=== PATIENT | male | born 1955 | race Caucasian/White ===

== ENCOUNTER → 2016-09-26 | Outpatient (REF) | payer BC, MEDICARE ==
[~2016-09-26] MED LIST: ASPI1TAB PO; ATOR40TA PO; AZAT5TAB PO; CIPR500T89 PO; FLAG500T PO; K-TA10TA2 PO; METO-209 PO; NITR4TASL SL; OMEP20CA3 PO; VIAG100T PO
[2016-09-26 11:16] LABS: BASO # 0.1 K/mm3 (0.0-0.2); BASO % 0.6 % (0.0-1.0); EOS # 0.6 K/mm3 (0.0-0.50); EOS % 5.2 % (0.0-3.0); LARGE UNSTAINED CELL # 0.2 K/mm3 (0.0-0.4); LARGE UNSTAINED CELL % 1.6 % (0.0-4.0); LYMPH # 1.5 K/mm3 (1.5-4.5); LYMPH % 12.3 % (24.0-44.0); MEAN CORPUSCULAR HEMOGLOBIN 31.3 pg (27.0-33.0); MEAN CORPUSCULAR HGB CONC 33.6 g/dl (32.0-36.5); MONO # 0.6 K/mm3 (0.0-0.8); MONO % 5.9 % (0.0-5.0); NEUTROPHILS # 8.1 K/mm3 (1.8-7.7); NEUTROPHILS % 74.5 % (36.0-66.0); PLATELET COUNT, AUTOMATED 349 k/mm3 (150-450); RED CELL DISTRIBUTION WIDTH 13.6 % (11.5-14.5); WHITE BLOOD COUNT 10.9 K/mm3 (4.0-10.0)
[2016-09-26 12:05] LABS: ALBUMIN 3.8 GM/DL (3.2-5.2); ALBUMIN/GLOBULIN RATIO 1.19 (1.00-1.93); ALKALINE PHOSPHATASE 110 U/L (45-117); ALT/SGPT 15 U/L (12-78); ANION GAP 11 MEQ/L (8-16); AST/SGOT 17 U/L (15-37); BILIRUBIN,TOTAL 0.4 MG/DL (0.2-1.0); BLOOD UREA NITROGEN 20 MG/DL (7-18); CALCIUM LEVEL 8.9 MG/DL (8.8-10.2); CARBON DIOXIDE LEVEL 25 MEQ/L (21-32); CHLORIDE LEVEL 107 MEQ/L (98-107); CHOLESTEROL LEVEL 182 MG/DL (<200); CREATININE FOR GFR 0.82 MG/DL (0.70-1.30); GLOMERULAR FILTRATION RATE > 60.0 (>49); GLUCOSE, FASTING 92 MG/DL (80-110); POTASSIUM SERUM 4.2 MEQ/L (3.5-5.1); SODIUM LEVEL 143 MEQ/L (136-145); TRIGLYCERIDES LEVEL 250 MG/DL (<150)
== END ==
LOC: M SFHCCLAY 08:46
PROVIDERS: ATTEND Family Medicine
DX: M35.1 Other overlap syndromes (principal); E78.00 Pure hypercholesterolemia, unspecified; I25.10 Atherosclerotic heart disease of native coronary artery without angina pectoris

== ENCOUNTER 2016-10-08 11:59 | Emergency (ER) | payer BC, MEDICARE ==
[~2016-10-08] VITALS: Ht 177.8 cm; Wt 90.7 kg
[2016-10-08] MEDS ORDERED: HYDR-733 PO (12:08)
[2016-10-08] MEDS ORDERED: LEFL1TAB4 PO (12:08)
[2016-10-08] MEDS ORDERED: FLOM5CAP PO (12:08)
[2016-10-08] MEDS ORDERED: MORPHINE 2 MG/ML 1ML SYRINGE IV ONE (12:45)
[2016-10-08] MEDS ORDERED: ONDANSETRON 4MG/2ML VIAL (J2405) IV ONE (12:45)
[2016-10-08] MEDS ORDERED: DICYCLOMINE INJ 20MG/2ML (J0500) IM ONE (12:45)
[2016-10-08] MEDS ORDERED: GASTROGRAFIN SOLUTION 30ML (Q9963) PO ONE ×2 (13:00)
[2016-10-08 13:03] LABS: BASO # 0.1 K/mm3 (0.0-0.2); BASO % 0.7 % (0.0-1.0); EOS # 0.5 K/mm3 (0.0-0.50); EOS % 6.1 % (0.0-3.0); LARGE UNSTAINED CELL # 0.3 K/mm3 (0.0-0.4); LARGE UNSTAINED CELL % 3.5 % (0.0-4.0); LYMPH # 1.8 K/mm3 (1.5-4.5); LYMPH % 17.2 % (24.0-44.0); MEAN CORPUSCULAR HEMOGLOBIN 30.5 pg (27.0-33.0); MEAN CORPUSCULAR HGB CONC 32.9 g/dl (32.0-36.5); MEAN CORPUSCULAR VOLUME 92.6 fl (80.0-96.0); MONO # 0.9 K/mm3 (0.0-0.8); MONO % 9.8 % (0.0-5.0); NEUTROPHILS # 5.5 K/mm3 (1.8-7.7); NEUTROPHILS % 62.8 % (36.0-66.0); PLATELET COUNT, AUTOMATED 384 k/mm3 (150-450); RED CELL DISTRIBUTION WIDTH 13.4 % (11.5-14.5); WHITE BLOOD COUNT 8.7 K/mm3 (4.0-10.0)
[2016-10-08 13:21] LABS: ALBUMIN 3.9 GM/DL (3.2-5.2); ALBUMIN/GLOBULIN RATIO 0.95 (1.00-1.93); ALKALINE PHOSPHATASE 117 U/L (45-117); ALT/SGPT 44 U/L (12-78); AMYLASE 27 U/L (25-115); ANION GAP 12 MEQ/L (8-16); AST/SGOT 57 U/L (15-37); BILIRUBIN,DIRECT 0.1 MG/DL (0.0-0.2); BILIRUBIN,TOTAL 0.5 MG/DL (0.2-1.0); BLOOD UREA NITROGEN 25 MG/DL (7-18); CALCIUM LEVEL 8.8 MG/DL (8.8-10.2); CARBON DIOXIDE LEVEL 20 MEQ/L (21-32); CHLORIDE LEVEL 107 MEQ/L (98-107); CREATININE FOR GFR 1.07 MG/DL (0.70-1.30); GLOMERULAR FILTRATION RATE > 60.0 (>49); GLUCOSE, FASTING 99 MG/DL (80-110); POTASSIUM SERUM 3.8 MEQ/L (3.5-5.1); SODIUM LEVEL 139 MEQ/L (136-145)
[2016-10-08] MEDS ORDERED: ISOVUE-370 76% 100ML VIAL (Q9967) As Ordered ONE (14:33)
[2016-10-08 15:20] VITALS: BP 110/59
[2016-10-08] MEDS ORDERED: ZOFR4TAB3 PO (15:22)
[2016-10-08] MEDS ORDERED: CIPR500T89 PO (15:22)
[2016-10-08] MEDS ORDERED: BENT20TA PO (15:22)
[2016-10-08] MEDS ORDERED: FLAG500T PO (15:22)
--- NOTE | 2016-10-09 07:20 | REP ---
CT study of the abdomen and pelvis with IV and oral contrast: History: Lower abdominal pain, nausea, vomiting and diarrhea for [address] study is from June 15, 2016. CT contrast dose: 100 mL of Isovue [address] findings: The patient is status post posterior element fusion at the L4-5 level in the lumbar spine via left-sided transpedicular screw and interconnecting rods placement. The bowel gas pattern is unremarkable. The lung bases show a 4 mm noncalcified nodule in the right middle lobe unchanged from the study done 4 months ago. There is no other significant pulmonary parenchymal finding. There is mild diffuse fatty infiltration of the liver. No focal liver lesion is seen. The spleen is unremarkable. No adrenal lesion is observed. No pancreatic abnormality is seen. The gallbladder is unremarkable. The kidneys enhance symmetrically are morphologically intact. A normal appendix is seen retrocecal in position. Small and large intestinal bowel loops show ingested barium and air with air fluid levels. The pattern of liquid content in the colon is seen with air fluid levels. This may reflect enteritis. No small or large bowel dilation is seen. No obstructive lesion is observed. Prostate, seminal vesicles and urinary bladder are unremarkable. No abdominal wall defect is seen. There is some post operative irregularity iliac crest posteriorly on the left consistent with a donor site for posterior element fusion. A laminectomy has been performed at L5. No bony destructive lesion is seen. Impression: 1. Fatty infiltration of the liver. 2. Question enteritis pattern in the bowel gas. No obstructive lesion seen. Normal appendix. 3. 4 mm noncalcified right middle lobe pulmonary nodule. Stable for the last 4 months. By Fleischner Society criteria this can be followed in 1 year if the patient is considered at high risk for pulmonary malignancy. Signed by Ollie Ng MD 10/09/2016 08:42 A
--- NOTE | 2016-10-10 21:35 | ED PDOC ---
Post-Departure Follow-Up dr logan faxed formal report of ct abd/p for fu Colby Up MD Oct 10, 2016 21:35
== END 2016-10-08 15:28 | disposition home or self-care (01) ==
LOC: M ED 13:37
DX: K52.9 Noninfective gastroenteritis and colitis, unspecified (principal)
CPT/HCPCS: 36415; 74177; 80048; 80076; 81001; 82150; 83605; 83690; 85025; 86140; 87086; 87507; 96372; 96374; 96375; 99283; J0500; J2405; Q9963; Q9967

== ENCOUNTER → 2016-10-24 | Outpatient (REF) | payer BC, MEDICARE ==
[~2016-10-24] MED LIST changes: +BENT20TA PO; +FLOM5CAP PO; +HYDR-733 PO; +LEFL1TAB4 PO; +ZOFR4TAB3 PO
[2016-10-24 17:36] LABS: ALBUMIN 3.8 GM/DL (3.2-5.2); ALBUMIN/GLOBULIN RATIO 1.27 (1.00-1.93); ALKALINE PHOSPHATASE 91 U/L (45-117); ALT/SGPT 21 U/L (12-78); ANION GAP 7 MEQ/L (8-16); AST/SGOT 21 U/L (15-37); BILIRUBIN,TOTAL 0.4 MG/DL (0.2-1.0); BLOOD UREA NITROGEN 17 MG/DL (7-18); CALCIUM LEVEL 8.5 MG/DL (8.8-10.2); CARBON DIOXIDE LEVEL 24 MEQ/L (21-32); CHLORIDE LEVEL 109 MEQ/L (98-107); CREATININE FOR GFR 0.76 MG/DL (0.70-1.30); GLOMERULAR FILTRATION RATE > 60.0 (>49); GLUCOSE, FASTING 87 MG/DL (80-110); POTASSIUM SERUM 4.2 MEQ/L (3.5-5.1); SODIUM LEVEL 140 MEQ/L (136-145); TOTAL PROTEIN 6.8 GM/DL (6.4-8.2)
[2016-10-24 18:26] LABS: BASO % 0.8 % (0.0-1.0); EOS # 0.3 K/mm3 (0.0-0.50); EOS % 4.5 % (0.0-3.0); LARGE UNSTAINED CELL # 0.1 K/mm3 (0.0-0.4); LARGE UNSTAINED CELL % 1.8 % (0.0-4.0); LYMPH # 1.5 K/mm3 (1.5-4.5); LYMPH % 20.2 % (24.0-44.0); MEAN CORPUSCULAR HEMOGLOBIN 30.7 pg (27.0-33.0); MEAN CORPUSCULAR HGB CONC 33.2 g/dl (32.0-36.5); MEAN CORPUSCULAR VOLUME 92.7 fl (80.0-96.0); MONO # 0.6 K/mm3 (0.0-0.8); MONO % 8.9 % (0.0-5.0); NEUTROPHILS # 4.5 K/mm3 (1.8-7.7); NEUTROPHILS % 63.9 % (36.0-66.0); PLATELET COUNT, AUTOMATED 317 k/mm3 (150-450); RED CELL DISTRIBUTION WIDTH 13.5 % (11.5-14.5)
== END ==
LOC: M SFHCCLAY 12:24
PROVIDERS: ATTEND Family Medicine
DX: R19.7 Diarrhea, unspecified (principal)

== ENCOUNTER → 2017-06-02 | Outpatient (CLI) | payer BC, MEDICARE ==
[~2017-06-02] MED LIST changes: -ATOR40TA PO; +ATOR40TA75 PO; +AZAT50TA2 PO; -AZAT5TAB PO; +CIPR-249 PO; -CIPR500T89 PO; -METO-209 PO; +METO1TAB33 PO; +PROHANCE 279.3MG/ML 15ML VIAL (A9576) As Ordered ONE; +PROHANCE 279.3MG/ML 5ML VIAL (A9576) As Ordered ONE
--- NOTE | 2017-06-02 12:05 | REP ---
MRI LUMBAR SPINE WITHOUT AND WITH CONTRAST: HISTORY: Post laminectomy syndrome. CONTRAST: ProHance 18 mL COMPARISON: 01/09/2015 Decreased signal intensity on T2-weighted images is present in the L2-3 through L5-S1 intervertebral discs. The discs are decreased in height. These findings are consistent with disc degeneration. There is no disc bulge or herniation at the L1-2 level. The L1 nerves exit the neural foramina without compression. A diffuse disc bulge is present at the L2-3 level. There is minimal compression of the thecal sac. The L2 nerves exit the neural foramina without compression. A diffuse disc bulge and small central disc extrusion are present at the L3-4 level. The disc extrusion is increased in size. There is inferior migration of disc material. There is hypertrophy of the ligamenta flava and posterior articulating facets. These findings produce mild central canal stenosis. The L3 nerves exit the neural foramina without compression. The patient is status post L4-5 posterior spinal fusion and laminectomy. Metal rods and pedicle screws are present. A diffuse disc bulge is present at the L4-5 level. This abuts the thecal sac. There is hypertrophy of the posterior articulating facets. The L4 nerves exit the neural foramina without compression. Enhancing scar tissue is present at the laminectomy site and in the lateral aspects of the spinal canal. The scar tissue involves the L5 nerves. A diffuse disc bulge is present at the L5-S1 level. This abuts the thecal sac. There is hypertrophy of the posterior articulating facets. The L5 nerves exit the neural foramina without compression. The conus medullaris is normal in appearance terminating at the level of the L2 vertebral body. Increased signal intensity on T2-weighted images is present in the inferior endplate of the L5 vertebral body. This represents degenerative change. There is no subluxation. IMPRESSION: 1. Diffuse disc bulge at the L2-3 level with minimal thecal sac compression. 2. Mild central canal stenosis at the L2-3 level secondary to disc bulge, disc extrusion, ligamentous and facet hypertrophy. The disc extrusion is increased in size. There has been progression of the canal stenosis. 3. The patient is status post L4-5 posterior spinal fusion and laminectomy. Scar tissues involves the L5 nerves. There is anatomic alignment of the lumbar spine. 4. Diffuse disc bulge at the L5-S1 level. This abuts the thecal sac. There is no other significant change. Signed by Juan Moser MD 06/02/2017 12:07 P
== END ==
LOC: M RAD 09:10
PROVIDERS: ATTEND Nurse Practitioner Family
DX: M46.1 Sacroiliitis, not elsewhere classified (principal); M96.1 Postlaminectomy syndrome, not elsewhere classified; M47.816 Spondylosis without myelopathy or radiculopathy, lumbar region; M51.27 Other intervertebral disc displacement, lumbosacral region; M79.1 Myalgia; M48.061 Spinal stenosis, lumbar region without neurogenic claudication; M50.11 Cervical disc disorder with radiculopathy, high cervical region; M51.26 Other intervertebral disc displacement, lumbar region
CPT/HCPCS: 72158; A9576

== ENCOUNTER → 2017-08-10 | Outpatient (REF) | payer BC, MEDICARE ==
[2017-08-10 12:21] LABS: BASO # 0.1 10^3/uL (0.0-0.2); BASO % 0.8 % (0.0-1.0); EOS # 0.2 10^3/uL (0.0-0.50); EOS % 2.6 % (0.0-3.0); HEMATOCRIT 46.8 % (42.0-52.0); HEMOGLOBIN 15.6 g/dl (14.0-18.0); IMMATURE GRANULOCYTE # 0.1 10^3/uL (0-0); IMMATURE GRANULOCYTE % 0.9 % (0-0); LYMPH # 1.8 10^3/uL (1.5-4.5); LYMPH % 20.8 % (24.0-44.0); MEAN CORPUSCULAR HEMOGLOBIN 31.7 pg (27.0-33.0); MEAN CORPUSCULAR HGB CONC 33.3 g/dl (32.0-36.5); MEAN CORPUSCULAR VOLUME 95.1 fl (80.0-96.0); MONO % 11.1 % (0.0-5.0); NEUTROPHILS # 5.5 10^3/uL (1.8-7.7); NEUTROPHILS % 63.8 % (36.0-66.0); PLATELET COUNT, AUTOMATED 253 10^3/uL (150-450); RED BLOOD COUNT 4.92 10^6/uL (4.30-6.10); RED CELL DISTRIBUTION WIDTH 13.6 % (11.5-14.5); WHITE BLOOD COUNT 8.6 10^3/uL (4.0-10.0)
[2017-08-10 12:47] LABS: ALBUMIN 3.6 GM/DL (3.2-5.2); ALBUMIN/GLOBULIN RATIO 1.16 (1.00-1.93); ALKALINE PHOSPHATASE 79 U/L (45-117); ALT/SGPT 14 U/L (12-78); ANION GAP 9 MEQ/L (8-16); AST/SGOT 16 U/L (7-37); BILIRUBIN,DIRECT < 0.1 MG/DL (0.0-0.2); BILIRUBIN,TOTAL 0.4 MG/DL (0.2-1.0); BLOOD UREA NITROGEN 21 MG/DL (7-18); CALCIUM LEVEL 8.6 MG/DL (8.8-10.2); CARBON DIOXIDE LEVEL 26 MEQ/L (21-32); CHLORIDE LEVEL 107 MEQ/L (98-107); CHOLESTEROL LEVEL 211 MG/DL (<200); CHOLESTEROL RISK RATIO 4.906 (<5); GLOMERULAR FILTRATION RATE > 60.0 (>49); GLUCOSE, FASTING 88 MG/DL (80-110); HDL CHOLESTEROL 43 MG/DL (>40); NON-HDL-C 168 MG/DL; POTASSIUM SERUM 4.2 MEQ/L (3.5-5.1); SODIUM LEVEL 142 MEQ/L (136-145); TOTAL PROTEIN 6.7 GM/DL (6.4-8.2); TRIGLYCERIDES LEVEL 180 MG/DL (<150)
== END ==
LOC: M LABDRAWC 11:51
DX: L40.0 Psoriasis vulgaris (principal); Z51.81 Encounter for therapeutic drug level monitoring; Z79.899 Other long term (current) drug therapy
CPT/HCPCS: 80076

== ENCOUNTER → 2017-09-05 | Outpatient (REF) | payer BC, MEDICARE ==
[2017-09-05 12:04] LABS: ALBUMIN 3.8 GM/DL (3.2-5.2); ALBUMIN/GLOBULIN RATIO 1.31 (1.00-1.93); ALKALINE PHOSPHATASE 84 U/L (45-117); ALT/SGPT 12 U/L (12-78); AST/SGOT 16 U/L (7-37); BILIRUBIN,DIRECT < 0.1 MG/DL (0.0-0.2); BILIRUBIN,TOTAL 0.4 MG/DL (0.2-1.0); CHOLESTEROL LEVEL 197 MG/DL (<200); CHOLESTEROL RISK RATIO 5.324 (<5); HDL CHOLESTEROL 37 MG/DL (>40); LDL CHOLESTEROL 103.8 MG/DL (<100); NON-HDL-C 160 MG/DL; TOTAL PROTEIN 6.7 GM/DL (6.4-8.2); TRIGLYCERIDES LEVEL 281 MG/DL (<150)
== END ==
LOC: M LABDRAWC 11:21
DX: L40.8 Other psoriasis (principal); Z51.81 Encounter for therapeutic drug level monitoring; Z79.899 Other long term (current) drug therapy
CPT/HCPCS: 80076

== ENCOUNTER → 2017-09-19 | Outpatient (REF) | payer BC, MEDICARE ==
[2017-09-19 11:35] LABS: BASO # 0.1 10^3/uL (0.0-0.2); EOS # 0.2 10^3/uL (0.0-0.50); EOS % 2.3 % (0.0-3.0); HEMATOCRIT 46.7 % (42.0-52.0); HEMOGLOBIN 15.5 g/dl (14.0-18.0); IMMATURE GRANULOCYTE # 0.1 10^3/uL (0-0); LYMPH # 1.7 10^3/uL (1.5-4.5); LYMPH % 24.3 % (24.0-44.0); MEAN CORPUSCULAR HEMOGLOBIN 31.3 pg (27.0-33.0); MEAN CORPUSCULAR HGB CONC 33.2 g/dl (32.0-36.5); MEAN CORPUSCULAR VOLUME 94.3 fl (80.0-96.0); MONO # 1.1 10^3/uL (0.0-0.8); MONO % 15.8 % (0.0-5.0); NEUTROPHILS # 3.9 10^3/uL (1.8-7.7); NEUTROPHILS % 55.6 % (36.0-66.0); PLATELET COUNT, AUTOMATED 326 10^3/uL (150-450); RED BLOOD COUNT 4.95 10^6/uL (4.30-6.10); RED CELL DISTRIBUTION WIDTH 13.7 % (11.5-14.5); WHITE BLOOD COUNT 7.1 10^3/uL (4.0-10.0)
[2017-09-19 11:58] LABS: ALBUMIN 3.7 GM/DL (3.2-5.2); ALT/SGPT 21 U/L (12-78); AST/SGOT 27 U/L (7-37); C REACTIVE PROTEIN QUANTITATIV 0.99 MG/DL (0.00-0.30); GLOMERULAR FILTRATION RATE > 60.0 (>49)
[2017-09-19 12:00] LABS: ERYTHROCYTE SEDIMENTATION RATE 23 mm/hr (0-20)
[2017-09-20 14:13] LABS: SMITHS ANTIBODY < 0.2 AI (0.0-0.9)
== END ==
LOC: M LABDRAWC 11:17
DX: Z79.899 Other long term (current) drug therapy (principal); M35.1 Other overlap syndromes; M36.8 Systemic disorders of connective tissue in other diseases classified elsewhere
CPT/HCPCS: 82565

== ENCOUNTER → 2017-09-19 | Outpatient (REF) | payer BC, MEDICARE ==
[2017-09-19 12:08] LABS: ALBUMIN 3.8 GM/DL (3.2-5.2); ALBUMIN/GLOBULIN RATIO 1.31 (1.00-1.93); ALKALINE PHOSPHATASE 101 U/L (45-117); ALT/SGPT 19 U/L (12-78); AST/SGOT 25 U/L (7-37); BILIRUBIN,DIRECT < 0.1 MG/DL (0.0-0.2); BILIRUBIN,TOTAL 0.2 MG/DL (0.2-1.0); CHOLESTEROL LEVEL 202 MG/DL (<200); CHOLESTEROL RISK RATIO 6.516 (<5); HDL CHOLESTEROL 31 MG/DL (>40); NON-HDL-C 171 MG/DL; TOTAL PROTEIN 6.7 GM/DL (6.4-8.2); TRIGLYCERIDES LEVEL 421 MG/DL (<150)
== END ==
LOC: M LABDRAWC 11:20
DX: L40.8 Other psoriasis (principal); Z51.81 Encounter for therapeutic drug level monitoring; Z79.899 Other long term (current) drug therapy
CPT/HCPCS: 80076

== ENCOUNTER → 2017-09-22 | Outpatient (CLI) | payer BC, MEDICARE | LOC: M RAD 07:04 | DX: M46.1 Sacroiliitis, not elsewhere classified (principal); M96.1 Postlaminectomy syndrome, not elsewhere classified; M47.816 Spondylosis without myelopathy or radiculopathy, lumbar region; M51.27 Other intervertebral disc displacement, lumbosacral region; M79.1 Myalgia; M48.061 Spinal stenosis, lumbar region without neurogenic claudication; M51.26 Other intervertebral disc displacement, lumbar region; M35.1 Other overlap syndromes; M47.812 Spondylosis without myelopathy or radiculopathy, cervical region; M54.16 Radiculopathy, lumbar region; M47.817 Spondylosis without myelopathy or radiculopathy, lumbosacral region | CPT/HCPCS: 72146 ==

== ENCOUNTER → 2017-09-29 | Outpatient (REF) | payer BC, MEDICARE ==
[2017-09-29 11:33] LABS: ALBUMIN 3.9 GM/DL (3.2-5.2); ALKALINE PHOSPHATASE 88 U/L (45-117); ALT/SGPT 20 U/L (12-78); AST/SGOT 24 U/L (7-37); BILIRUBIN,DIRECT 0.1 MG/DL (0.0-0.2); BILIRUBIN,TOTAL 0.4 MG/DL (0.2-1.0); CHOLESTEROL LEVEL 210 MG/DL (<200); HDL CHOLESTEROL 35 MG/DL (>40); LDL CHOLESTEROL 97.8 MG/DL (<100); NON-HDL-C 175 MG/DL; TOTAL PROTEIN 6.9 GM/DL (6.4-8.2); TRIGLYCERIDES LEVEL 386 MG/DL (<150)
== END ==
LOC: M LABDRAWC 11:01
DX: L40.8 Other psoriasis (principal); Z51.81 Encounter for therapeutic drug level monitoring; Z79.899 Other long term (current) drug therapy
CPT/HCPCS: 80076

== ENCOUNTER → 2017-10-13 | Outpatient (REF) | payer BC, MEDICARE ==
[2017-10-13 12:09] LABS: ALBUMIN 3.8 GM/DL (3.2-5.2); ALBUMIN/GLOBULIN RATIO 1.41 (1.00-1.93); ALKALINE PHOSPHATASE 64 U/L (45-117); ALT/SGPT 12 U/L (12-78); AST/SGOT 18 U/L (7-37); BILIRUBIN,DIRECT 0.1 MG/DL (0.0-0.2); BILIRUBIN,TOTAL 0.4 MG/DL (0.2-1.0); CHOLESTEROL LEVEL 175 MG/DL (<200); CHOLESTEROL RISK RATIO 5.645 (<5); HDL CHOLESTEROL 31 MG/DL (>40); NON-HDL-C 144 MG/DL; TOTAL PROTEIN 6.5 GM/DL (6.4-8.2); TRIGLYCERIDES LEVEL 250 MG/DL (<150)
== END ==
LOC: M LABDRAWC 11:33
DX: L40.8 Other psoriasis (principal); Z51.81 Encounter for therapeutic drug level monitoring; Z79.899 Other long term (current) drug therapy
CPT/HCPCS: 80076

== ENCOUNTER → 2017-11-20 | Outpatient (REF) | payer BC, MEDICARE ==
[2017-11-20 12:36] LABS: ALT/SGPT 19 U/L (12-78); CHOLESTEROL LEVEL 219 MG/DL (< 200); TRIGLYCERIDES LEVEL 253 MG/DL (<150)
[2017-11-20 12:36] LABS: AST/SGOT 29 U/L (7-37)
== END ==
LOC: M LABDRAWC 11:41
DX: L40.1 Generalized pustular psoriasis (principal); Z79.899 Other long term (current) drug therapy; Z51.81 Encounter for therapeutic drug level monitoring
CPT/HCPCS: 84460

== ENCOUNTER → 2017-12-05 | Outpatient (REF) | payer BC, MEDICARE ==
[2017-12-05 11:29] LABS: ALBUMIN 3.8 GM/DL (3.2-5.2); ALBUMIN/GLOBULIN RATIO 1.23 (1.00-1.93); ALKALINE PHOSPHATASE 69 U/L (45-117); ALT/SGPT 21 U/L (12-78); AST/SGOT 30 U/L (7-37); BILIRUBIN,DIRECT < 0.1 MG/DL (0.0-0.2); BILIRUBIN,TOTAL 0.3 MG/DL (0.2-1.0); CHOLESTEROL LEVEL 205 MG/DL (<200); CHOLESTEROL RISK RATIO 7.068 (<5); HDL CHOLESTEROL 29 MG/DL (>40); LDL CHOLESTEROL 107.2 MG/DL (<100); NON-HDL-C 176 MG/DL; TOTAL PROTEIN 6.9 GM/DL (6.4-8.2); TRIGLYCERIDES LEVEL 344 MG/DL (<150)
== END ==
LOC: M LABDRAWC 11:01
DX: L40.8 Other psoriasis (principal); Z51.81 Encounter for therapeutic drug level monitoring; Z79.899 Other long term (current) drug therapy
CPT/HCPCS: 80076

== ENCOUNTER → 2018-02-20 | Outpatient (REF) | payer BC, MEDICARE ==
[2018-02-20 11:53] LABS: ALBUMIN 3.6 GM/DL (3.2-5.2); ALBUMIN/GLOBULIN RATIO 1.16 (1.00-1.93); ALKALINE PHOSPHATASE 62 U/L (45-117); ALT/SGPT 24 U/L (12-78); AST/SGOT 35 U/L (7-37); BILIRUBIN,DIRECT < 0.1 MG/DL (0.0-0.2); BILIRUBIN,TOTAL 0.3 MG/DL (0.2-1.0); CHOLESTEROL LEVEL 225 MG/DL (<200); CHOLESTEROL RISK RATIO 4.787 (<5); HDL CHOLESTEROL 47 MG/DL (>40); NON-HDL-C 178 MG/DL; TOTAL PROTEIN 6.7 GM/DL (6.4-8.2); TRIGLYCERIDES LEVEL 240 MG/DL (<150)
== END ==
LOC: M LABDRAWC 11:16
DX: L40.8 Other psoriasis (principal); Z51.81 Encounter for therapeutic drug level monitoring; Z79.899 Other long term (current) drug therapy
CPT/HCPCS: 80076

== ENCOUNTER → 2018-04-25 | Outpatient (CLI) | payer BC, MEDICARE ==
[2018-04-25 14:08] LABS: BASO # 0.1 10^3/uL (0.0-0.2); BASO % 0.5 % (0.0-1.0); EOS # 0.2 10^3/uL (0.0-0.50); EOS % 1.7 % (0.0-3.0); HEMATOCRIT 43.3 % (42.0-52.0); HEMOGLOBIN 14.1 g/dl (13.5-17.5); IMMATURE GRANULOCYTE % 0.9 % (0-3.0); LYMPH % 17.6 % (24.0-44.0); MEAN CORPUSCULAR HEMOGLOBIN 31.3 pg (27.0-33.0); MEAN CORPUSCULAR HGB CONC 32.6 g/dl (32.0-36.5); MONO # 1.7 10^3/uL (0.0-0.8); MONO % 14.4 % (0.0-5.0); NEUTROPHILS # 7.4 10^3/uL (1.8-7.7); NEUTROPHILS % 64.9 % (36.0-66.0); PLATELET COUNT, AUTOMATED 290 10^3/uL (150-450); RED BLOOD COUNT 4.51 10^6/uL (4.30-6.10); RED CELL DISTRIBUTION WIDTH 13.7 % (11.5-14.5); WHITE BLOOD COUNT 11.5 10^3/uL (4.0-10.0)
[2018-04-25 14:45] LABS: ALBUMIN 3.2 GM/DL (3.2-5.2); ALBUMIN/GLOBULIN RATIO 1.03 (1.00-1.93); ALKALINE PHOSPHATASE 75 U/L (45-117); ALT/SGPT 11 U/L (12-78); ANION GAP 8 MEQ/L (8-16); AST/SGOT 22 U/L (7-37); BILIRUBIN,DIRECT 0.1 MG/DL (0.0-0.2); BILIRUBIN,TOTAL 0.5 MG/DL (0.2-1.0); BLOOD UREA NITROGEN 17 MG/DL (7-18); CALCIUM LEVEL 8.1 MG/DL (8.8-10.2); CARBON DIOXIDE LEVEL 29 MEQ/L (21-32); CHLORIDE LEVEL 102 MEQ/L (98-107); CREATININE FOR GFR 0.84 MG/DL (0.70-1.30); GLOMERULAR FILTRATION RATE > 60.0 (>49); GLUCOSE, FASTING 62 MG/DL (70-100); PHOSPHORUS LEVEL 2.9 MG/DL (2.5-4.9); POTASSIUM SERUM 4.5 MEQ/L (3.5-5.1); SODIUM LEVEL 139 MEQ/L (136-145); TOTAL PROTEIN 6.3 GM/DL (6.4-8.2)
[2018-04-25 14:48] LABS: HEPATITIS B SURFACE ANTIBODY NEGATIVE (POSITIVE)
[2018-04-25 14:59] LABS: HEPATITIS B SURFACE ANTIGEN NEGATIVE (NEGATIVE)
[2018-04-25 15:28] LABS: HEPATITIS C VIRUS ABY INDEX 0.1 INDEX (<0.8)
[2018-05-02 00:07] LABS: QUANTIFERON GOLD TB Negative (Negative); TB Test (QFT) Antigen 0.11 IU/mL (.); TB Test (QFT) Antigen Minus Ni 0.06 IU/mL (.); TB Test (QFT) Mitogen >10.00 IU/mL (.); TB Test (QFT) Nil 0.05 IU/mL (.)
== END ==
LOC: M WUC 09:39
DX: Z51.81 Encounter for therapeutic drug level monitoring (principal); Z79.899 Other long term (current) drug therapy; L40.0 Psoriasis vulgaris
CPT/HCPCS: 80076

== ENCOUNTER → 2019-05-09 | Outpatient (CLI) | payer BC, MEDICARE ==
[~2019-05-09] MED LIST changes: -ASPI1TAB PO; +ASPI81TA26 PO; +FLOM0.4C39 PO; -FLOM5CAP PO; -OMEP20CA3 PO; +OMEP20CA4 PO; -PROHANCE 279.3MG/ML 15ML VIAL (A9576) As Ordered ONE; -PROHANCE 279.3MG/ML 5ML VIAL (A9576) As Ordered ONE; +ZOFR4TAB14 PO; -ZOFR4TAB3 PO
--- NOTE | 2019-05-09 10:23 | REP ---
Two-view chest: 05/09/2019. Indication: New psoriasis and medication monitoring. Comparison: 04/25/2018. Findings: Elevation of the right hemidiaphragm is redemonstrated. Plate-like atelectasis of the left lower lobe persists. Spinal stimulator is unchanged in position. No new pulmonary infiltrates are present. There is no pneumothorax. Cardiac silhouette is unremarkable. Impression: No acute cardiopulmonary process. Stable exam compared to last year. Electronically Signed by Jonn Ahmadi DO 05/09/2019 10:14 A
== END ==
LOC: M LAB 07:15
PROVIDERS: ATTEND Nurse Practitioner Family
DX: Z51.81 Encounter for therapeutic drug level monitoring (principal); L40.0 Psoriasis vulgaris; Z79.899 Other long term (current) drug therapy

== ENCOUNTER → 2019-05-16 | Outpatient (REF) | payer BC, MEDICARE ==
[2019-05-16 12:02] LABS: CHOLESTEROL RISK RATIO 4.942 (<5)
== END ==
LOC: M SFHCRHEU 07:19
PROVIDERS: ATTEND Family Medicine
DX: E78.00 Pure hypercholesterolemia, unspecified (principal)

== ENCOUNTER → 2019-07-10 | Outpatient (CLI) | payer BC, MEDICARE ==
[~2019-07-10] MED LIST changes: +OMEP-172 PO; -OMEP20CA4 PO
--- NOTE | 2019-07-10 15:55 | REP ---
Two-view chest: 07/10/2019. Indication: Intermittent chest pain. Comparison: 05/09/2019. Findings: Spinal stimulator is redemonstrated. Elevation of the right hemidiaphragm is stable. There is no air space consolidation. There is no evidence of pleural effusion or pneumothorax. Cardiac silhouette is stable. Impression: No acute cardiopulmonary process. Electronically Signed by Jonn Ahmadi DO 07/10/2019 03:47 P
== END ==
LOC: M RAD 10:54
PROVIDERS: ATTEND Internal Medicine Cardiovascular Disease
DX: I25.10 Atherosclerotic heart disease of native coronary artery without angina pectoris (principal)

== ENCOUNTER 2019-09-03 09:08 | Day surgery (SDC) | payer BC, MEDICARE ==
[~2019-09-03] VITALS: Ht 177.8 cm; Wt 90.3 kg
[~2019-09-03 09:08] MED LIST changes: +COSE1INJ SC; +NS 1,000 ML IV ONE; -OMEP-172 PO; +OMEP1CAP73 PO
[2019-09-03] MEDS ORDERED: propofoL 200 MG/20 ML VIAL As Ordered ONE ×3 (10:42→11:31)
[2019-09-03] MEDS ORDERED: LIDOCAINE 2% INJ 100 MG/5 ML SDV (FOR ANES.) As Ordered ONE (10:43)
--- NOTE | 2019-09-03 11:43 | ROOR ---
Patient Name: Brett Moore Procedure Date: 09/03/2019 10:58 AM Date of : 1955 Age: 64 Room: [facility] Gender: Male Note Status: Finalized Procedure: Colonoscopy Indications: High risk colon cancer surveillance: Personal history of colonic polyps, Family history of colon cancer in multiple first-degree relatives Providers: Brett Vasquez MD Referring MD: Stan Ling MD Requesting Provider: Medicines: Monitored Anesthesia Care Complications: No immediate complications. Procedure: Pre-Anesthesia Assessment: - Prior to the procedure, a History and Physical was performed, and patient medications and allergies were reviewed. The patient is competent. The risks and benefits of the procedure and the sedation options and risks were discussed with the patient. All questions were answered and informed consent was obtained. Patient identification and proposed procedure were verified by the physician, the nurse and the anesthesiologist in the procedure room. Mental Status Examination: alert and oriented. Airway Examination: normal oropharyngeal airway and neck mobility. Prophylactic Antibiotics: The patient does not require prophylactic antibiotics. Prior Anticoagulants: The patient has taken no previous anticoagulant or antiplatelet agents. ASA Grade Assessment: III - A patient with severe systemic disease. After reviewing the risks and benefits, the patient was deemed in satisfactory condition to undergo the procedure. The anesthesia plan was to use monitored anesthesia care (MAC). Immediately prior to administration of medications, the patient was re-assessed for adequacy to receive sedatives. The heart rate, respiratory rate, oxygen saturations, blood pressure, adequacy of pulmonary ventilation, and response to care were monitored throughout the procedure. The physical status of the patient was re-assessed after the procedure. The Colonoscope was introduced through the anus and advanced to the cecum, identified by appendiceal orifice and ileocecal valve. The colonoscopy was performed without difficulty. The patient tolerated the procedure well. The quality of the bowel preparation was good. Findings: The perianal and digital rectal examinations were normal. Two sessile polyps were found in the cecum. The polyps were 2 to 5 mm in size. These polyps were removed with a cold snare. Resection and retrieval were complete. Estimated blood loss was minimal. A 6 mm polyp was found in the descending colon. The polyp was sessile. The polyp was removed with a cold snare. Resection and retrieval were complete. Multiple medium-mouthed diverticula were found in the sigmoid colon and distal descending colon. Impression: - Two 2 to 5 mm polyps in the cecum, removed with a cold snare. Resected and retrieved. - One 6 mm polyp in the descending colon, removed with a cold snare. Resected and retrieved. - Diverticulosis in the sigmoid colon and in the distal descending colon. Recommendation: - Discharge patient to home. - Resume previous diet. - Continue present medications. - Await pathology results. - Repeat colonoscopy in 3 years for surveillance. Brett Vasquez MD Brett Vasquez MD 09/03/2019 11:42:53 AM Electronically signed by Brett Vasquez MD Number of Addenda: 0 Note Initiated On: 09/03/2019 10:58 AM Estimated Blood Loss: Estimated blood loss was minimal.
[2019-09-03 11:55] VITALS: BP 135/85
== END 2019-09-03 12:06 | disposition home or self-care (01) ==
LOC: M OPP 09:08
PROVIDERS: ATTEND Surgery
DX: Z12.11 Encounter for screening for malignant neoplasm of colon (principal); Z86.010 Personal history of colon polyps; Z80.0 Family history of malignant neoplasm of digestive organs; D12.0 Benign neoplasm of cecum; D12.4 Benign neoplasm of descending colon; K57.30 Diverticulosis of large intestine without perforation or abscess without bleeding; I25.2 Old myocardial infarction; Z79.899 Other long term (current) drug therapy; Z95.5 Presence of coronary angioplasty implant and graft; Z87.891 Personal history of nicotine dependence

== ENCOUNTER → 2020-06-11 | Outpatient (REF) | payer MEDICARE, BC ==
[~2020-06-11] MED LIST changes: -NS 1,000 ML IV ONE
[2020-06-11 11:55] LABS: RED BLOOD COUNT 5.31 10^6/uL (4.30-6.10); WHITE BLOOD COUNT 11.7 10^3/uL (4.0-10.0)
[2020-06-11 11:56] LABS: HEMATOCRIT 50.3 % (42.0-52.0); HEMOGLOBIN 16.1 g/dl (13.5-17.5); MEAN CORPUSCULAR HEMOGLOBIN 30.3 pg (27.0-33.0); MEAN CORPUSCULAR VOLUME 94.7 fl (80.0-96.0); PLATELET COUNT, AUTOMATED 325 10^3/uL (150-450)
[2020-06-11 12:47] LABS: ALBUMIN 3.7 GM/DL (3.2-5.2); ALT/SGPT 16 U/L (12-78); BILIRUBIN,TOTAL 0.3 MG/DL (0.2-1.0); BLOOD UREA NITROGEN 31 MG/DL (7-18); CALCIUM LEVEL 8.9 MG/DL (8.8-10.2); CARBON DIOXIDE LEVEL 24 MEQ/L (21-32); CHLORIDE LEVEL 105 MEQ/L (98-107); CHOLESTEROL LEVEL 178 MG/DL (<200); CHOLESTEROL RISK RATIO 3.787 (<5); CREATININE FOR GFR 0.87 MG/DL (0.70-1.30); GLOMERULAR FILTRATION RATE > 60.0 (>49); GLUCOSE, FASTING 85 MG/DL (70-100); HDL CHOLESTEROL 47 MG/DL (>40); LDL CHOLESTEROL 100 MG/DL (<100); NON-HDL-C 131 MG/DL; POTASSIUM SERUM 4.6 MEQ/L (3.5-5.1); SODIUM LEVEL 139 MEQ/L (136-145); TOTAL PROTEIN 6.8 GM/DL (6.4-8.2); TRIGLYCERIDES LEVEL 154 MG/DL (<150)
== END ==
LOC: M LABDRAWC 11:11
PROVIDERS: ATTEND Physician Assistant
DX: E78.2 Mixed hyperlipidemia (principal); R06.02 Shortness of breath

== ENCOUNTER → 2020-06-15 | Outpatient (REF) | payer MEDICARE, BC ==
[2020-06-15 16:39] LABS: BASO # 0.1 10^3/uL (0.0-0.2); BASO % 0.8 % (0.0-1.0); EOS # 0.2 10^3/uL (0.0-0.5); EOS % 2.3 % (0.0-3.0); HEMATOCRIT 49.8 % (42.0-52.0); HEMOGLOBIN 15.3 g/dl (13.5-17.5); LYMPH # 1.8 10^3/uL (1.5-5.0); LYMPH % 17.1 % (24.0-44.0); MEAN CORPUSCULAR HEMOGLOBIN 29.6 pg (27.0-33.0); MEAN CORPUSCULAR HGB CONC 30.7 g/dl (32.0-36.5); MEAN CORPUSCULAR VOLUME 96.3 fl (80.0-96.0); MONO # 0.9 10^3/uL (0.0-0.8); MONO % 8.6 % (0.0-5.0); NEUTROPHILS # 7.5 10^3/uL (1.5-8.5); PLATELET COUNT, AUTOMATED 267 10^3/uL (150-450); RED BLOOD COUNT 5.17 10^6/uL (4.30-6.10); WHITE BLOOD COUNT 10.7 10^3/uL (4.0-10.0)
[2020-06-15 17:16] LABS: ALT/SGPT 18 U/L (12-78); C REACTIVE PROTEIN QUANTITATIV 1.03 MG/DL (0.00-0.30); CREATININE FOR GFR 0.88 MG/DL (0.70-1.30); GLOMERULAR FILTRATION RATE > 60.0 (>49)
[2020-06-15 17:24] LABS: HEPATITIS B SURFACE ANTIGEN NEGATIVE (NEGATIVE)
[2020-06-15 17:32] LABS: ERYTHROCYTE SEDIMENTATION RATE 9 mm/hr (0-20)
[2020-06-15 17:53] LABS: HEPATITIS C VIRUS ABY INDEX < 0.0 INDEX (<0.8)
[2020-06-18 16:07] LABS: ANA (HEP2) Negative (.); SMITHS ANTIBODY < 0.2 AI (0.0-0.9)
== END ==
LOC: M LABDRAWC 15:59
PROVIDERS: ATTEND Nurse Practitioner Family
DX: L40.59 Other psoriatic arthropathy (principal); M35.1 Other overlap syndromes; M25.50 Pain in unspecified joint; Z79.899 Other long term (current) drug therapy

== ENCOUNTER 2020-07-14 20:24 | Emergency (ER) | payer BC, MEDICARE ==
[~2020-07-14] VITALS: Ht 177.8 cm; Wt 94.9 kg
[2020-07-14] MEDS ORDERED: TIZA4CAP PO (20:57)
[2020-07-14] MEDS ORDERED: PRED5SOL10 PO (20:57)
[2020-07-14] MEDS ORDERED: KETOROLAC 30 MG/ML 1ML VIAL IV ONE (22:00)
[2020-07-14] MEDS ORDERED: NS 1,000 ML IV ONE (22:00)
[2020-07-14 22:39] LABS: BASO # 0.1 10^3/uL (0.0-0.2); BASO % 0.5 % (0.0-1.0); EOS # 0.1 10^3/uL (0.0-0.5); EOS % 0.6 % (0.0-3.0); HEMATOCRIT 46.3 % (42.0-52.0); HEMOGLOBIN 14.7 g/dl (13.5-17.5); LYMPH # 2.3 10^3/uL (1.5-5.0); LYMPH % 19.4 % (24.0-44.0); MEAN CORPUSCULAR HEMOGLOBIN 29.5 pg (27.0-33.0); MEAN CORPUSCULAR HGB CONC 31.7 g/dl (32.0-36.5); MEAN CORPUSCULAR VOLUME 92.8 fl (80.0-96.0); MONO # 1.5 10^3/uL (0.0-0.8); MONO % 12.6 % (0.0-5.0); NEUTROPHILS # 7.9 10^3/uL (1.5-8.5); NEUTROPHILS % 66.4 % (36.0-66.0); PLATELET COUNT, AUTOMATED 296 10^3/uL (150-450); RED BLOOD COUNT 4.99 10^6/uL (4.30-6.10); WHITE BLOOD COUNT 11.9 10^3/uL (4.0-10.0)
[2020-07-14 23:08] LABS: ALBUMIN 3.7 GM/DL (3.2-5.2); ALT/SGPT 22 U/L (12-78); BILIRUBIN,DIRECT < 0.1 MG/DL (0.0-0.2); BILIRUBIN,TOTAL 0.2 MG/DL (0.2-1.0); C REACTIVE PROTEIN QUANTITATIV < 0.30 MG/DL (0.00-0.30); TOTAL PROTEIN 6.5 GM/DL (6.4-8.2)
[2020-07-14] MEDS ORDERED: ISOVUE-370 76% 100ML VIAL As Ordered ONE (23:28)
[2020-07-14 23:37] LABS: ERYTHROCYTE SEDIMENTATION RATE 7 mm/hr (0-20)
--- NOTE | 2020-07-14 23:59 | REPVR ---
PROCEDURE INFORMATION: Exam: CT Head Without Contrast Exam date and time: 07/14/2020 9:57 PM Age: 65 years old Clinical indication: Pain; Headache not specified; Additional info: New onset right sided headache TECHNIQUE: Imaging protocol: Computed tomography of the head without contrast. Radiation optimization: All CT scans at this facility use at least one of these dose optimization techniques: automated exposure control; mA and/or kV adjustment per patient size (includes targeted exams where dose is matched to clinical indication); or iterative reconstruction. COMPARISON: No relevant prior studies available. FINDINGS: Brain: No acute intracranial hemorrhage, midline shift or mass effect. Cerebral ventricles: No hydrocephalus. Bones/joints: Unremarkable. No acute fracture. Paranasal sinuses: Visualized sinuses are unremarkable. No fluid levels. Mastoid air cells: Visualized mastoid air cells are well aerated. Soft tissues: Unremarkable. IMPRESSION: No acute intracranial abnormality. Electronically signed by: Octavio Collado On 07/14/2020 23:59:35 PM
--- NOTE | 2020-07-15 00:03 | REPVR ---
PROCEDURE INFORMATION: Exam: CT Neck With Contrast Exam date and time: 07/14/2020 9:51 PM Age: 65 years old Clinical indication: Neck pain; Additional info: Pain right neck/jaw/ear TECHNIQUE: Imaging protocol: Computed tomography images of the neck with intravenous contrast. Radiation optimization: All CT scans at this facility use at least one of these dose optimization techniques: automated exposure control; mA and/or kV adjustment per patient size (includes targeted exams where dose is matched to clinical indication); or iterative reconstruction. Contrast material: ISO; Contrast volume: 75 ml; Contrast route: INTRAVENOUS (IV); COMPARISON: MRI-Spine,Cervical without con 01/09/2015 5:42 PM FINDINGS: Limitations: Artifact arising from metallic dental hardware. Mastoid air cells: Trace partial opacification of the left mastoid air cells. Right mastoid air cells are clear. Bilateral middle ear cavities are clear. Paranasal sinuses: Minimal paranasal sinus disease. Nasopharynx: Unremarkable. Oropharynx: Unremarkable. No significant tonsillar enlargement. Hypopharynx: Unremarkable. Larynx: Unremarkable. Normal epiglottis. Retropharyngeal space: Unremarkable. Submandibular/Parotid glands: Normal. Glands are normal in size. Thyroid: Left thyroid nodule measures 6 mm. Lymph nodes: Unremarkable. No lymphadenopathy. Trachea: Visualized trachea is unremarkable. Lungs: Unremarkable as visualized. Bones/joints: There are degenerative changes involving the spine. Vasculature: Mild vascular calcification. Soft tissues: No visible pneumothorax or consolidation. IMPRESSION: No acute abnormality involving the soft tissues of the neck. COMMENTS: Consistent with the [employer]'s Incidental Findings Committee white paper (J Am Love Radiol 2015): In patients aged 35 years and older with an incidental thyroid nodule equal to or greater than 1.[address], MRI or extrathyroidal US, further evaluation with dedicated thyroid US is recommended for patients with normal life expectancy and without comorbidities. For smaller nodules without suspicious features, no further evaluation or follow up is recommended. Electronically signed by: Octavio Collado On 07/15/2020 00:03:44 AM
[2020-07-15] MEDS ORDERED: AUGM875T28 PO (00:41)
[2020-07-15] MEDS ORDERED: AUGMENTIN 875 MG TAB PO ONE (00:45)
[2020-07-15 01:08] VITALS: BP 156/71
== END 2020-07-15 01:10 | disposition home or self-care (01) ==
LOC: M ED 20:24
DX: R51.9 Headache, unspecified (principal); J01.90 Acute sinusitis, unspecified; I25.2 Old myocardial infarction; I10 Essential (primary) hypertension; K21.9 Gastro-esophageal reflux disease without esophagitis; E78.5 Hyperlipidemia, unspecified; Z79.82 Long term (current) use of aspirin; Z79.899 Other long term (current) drug therapy
CPT/HCPCS: 70450; 70491; 80047; 80076; 83605; 85025; 85652; 86140; 87040; 96361; 96374; 99284; J1885; Q9967

== ENCOUNTER → 2020-07-21 | Outpatient (REF) | payer BC, MEDICARE ==
[~2020-07-21] MED LIST changes: +AUGM875T28 PO; +PRED5SOL10 PO; +TIZA4CAP PO
[2020-07-21 12:52] LABS: CHOLESTEROL RISK RATIO 2.319 (<5)
== END ==
LOC: M LABDRAWC 11:37
PROVIDERS: ATTEND Internal Medicine Cardiovascular Disease
DX: E78.5 Hyperlipidemia, unspecified (principal)

== ENCOUNTER → 2020-09-24 | Outpatient (CLI) | payer BC, MEDICARE ==
--- NOTE | 2020-09-24 17:06 | REP ---
INDICATION: DISORDERS OF DIAPHRAGM. COMPARISON: None TECHNIQUE: This procedure was performed by Clarice Danielson [facility], under the direct supervision of Dr. Ambrose. Images were reviewed with Dr. Ambrose prior to dictation. While the patient was standing in the AP position fluoroscopy was utilized while the patient did inspiration, expiration, and deep breathing techniques. FINDINGS: The right hemidiaphragm appears essentially immobile during inspiration, expiration, and deep breathing. The left hemidiaphragm demonstrates normal amplitude and direction of motion with inspiration, expiration, and deep breathing. IMPRESSION: Immobile right hemidiaphragm during inspiration, expiration, and deep breathing. 0.4 minutes of fluoroscopy time was utilized for this procedure. Some fluoroscopic images are performed with last image hold technology. These images require no additional radiation. <Electronically signed by Clarice Danielson > 09/24/20 [id number] <Electronically signed by Yaw Ambrose > 09/24/20 [id number]
== END ==
LOC: M RAD 10:10
PROVIDERS: ATTEND Nurse Practitioner Adult Health
DX: J98.6 Disorders of diaphragm (principal)

== ENCOUNTER → 2020-10-01 | Outpatient (REF) | payer BC, MEDICARE ==
[2020-10-02 13:29] LABS: BASO # 0.1 10^3/uL (0.0-0.2); EOS # 0.2 10^3/uL (0.0-0.5); EOS % 2.7 % (0.0-3.0); HEMATOCRIT 49.5 % (42.0-52.0); HEMOGLOBIN 15.8 g/dl (13.5-17.5); LYMPH # 2.1 10^3/uL (1.5-5.0); LYMPH % 26.5 % (24.0-44.0); MEAN CORPUSCULAR HEMOGLOBIN 30.8 pg (27.0-33.0); MEAN CORPUSCULAR HGB CONC 31.9 g/dl (32.0-36.5); MEAN CORPUSCULAR VOLUME 96.5 fl (80.0-96.0); MONO % 13.3 % (2.0-8.0); NEUTROPHILS # 4.3 10^3/uL (1.5-8.5); NEUTROPHILS % 55.1 % (36.0-66.0); PLATELET COUNT, AUTOMATED 273 10^3/uL (150-450); RED BLOOD COUNT 5.13 10^6/uL (4.30-6.10); WHITE BLOOD COUNT 7.8 10^3/uL (4.0-10.0)
[2020-10-02 13:53] LABS: ALT/SGPT 39 U/L (12-78); BLOOD UREA NITROGEN 27 MG/DL (7-18); CREATININE FOR GFR 0.96 MG/DL (0.70-1.30); GLOMERULAR FILTRATION RATE > 60.0 (>49)
[2020-10-02 14:10] LABS: ERYTHROCYTE SEDIMENTATION RATE 6 mm/hr (0-20)
== END ==
LOC: M LABDRAWC 11:26
PROVIDERS: ATTEND Nurse Practitioner Family
DX: M47.20 Other spondylosis with radiculopathy, site unspecified (principal)

== ENCOUNTER → 2020-10-30 | Outpatient (CLI) | payer BC, MEDICARE | LOC: M LABSMTC 12:00 | PROVIDERS: ATTEND Internal Medicine Cardiovascular Disease | DX: Z20.822 Contact with and (suspected) exposure to COVID-19 (principal) ==

== ENCOUNTER → 2021-01-18 | Outpatient (REF) | payer BC, MEDICARE ==
[2021-01-18 11:57] LABS: BLOOD UREA NITROGEN 21 MG/DL (7-18); CALCIUM LEVEL 8.9 MG/DL (8.8-10.2); CARBON DIOXIDE LEVEL 24 MEQ/L (21-32); CHLORIDE LEVEL 111 MEQ/L (98-107); GLOMERULAR FILTRATION RATE > 60.0 (>49); GLUCOSE, FASTING 93 MG/DL (70-100); SODIUM LEVEL 141 MEQ/L (136-145)
== END ==
LOC: M SFHCCLAY 07:26
PROVIDERS: ATTEND Family Medicine
DX: Z13.1 Encounter for screening for diabetes mellitus (principal); Z00.00 Encounter for general adult medical examination without abnormal findings

== ENCOUNTER → 2022-01-04 | Outpatient (REF) | payer BC, MEDICARE ==
[~2022-01-04] MED LIST changes: -AZAT50TA2 PO; +AZAT50TA37 PO
[2022-01-04 12:01] LABS: BLOOD UREA NITROGEN 18 MG/DL (7-18); GLOMERULAR FILTRATION RATE > 60.0 (>49)
== END ==
LOC: M LABDRAWC 11:12
PROVIDERS: ATTEND Nurse Practitioner Family
DX: Z79.899 Other long term (current) drug therapy (principal)

== ENCOUNTER → 2022-02-11 | Outpatient (CLI) | payer MEDICARE | LOC: M PLARAD 09:08 | PROVIDERS: ATTEND Nurse Practitioner Family | DX: D17.9 Benign lipomatous neoplasm, unspecified (principal) ==

== ENCOUNTER 2022-05-03 07:45 | Emergency (ER) | payer MEDICARE ==
[~2022-05-03] VITALS: Ht 177.8 cm; Wt 88.3 kg
[2022-05-03 08:40] LABS: BASO # 0.1 10^3/uL (0.0-0.2); BASO % 0.7 % (0.0-1.0); EOS # 0.5 10^3/uL (0.0-0.5); EOS % 6.3 % (0.0-3.0); HEMATOCRIT 46.6 % (42.0-52.0); HEMOGLOBIN 14.7 g/dl (13.5-17.5); LYMPH % 11.3 % (24.0-44.0); MEAN CORPUSCULAR HEMOGLOBIN 30.5 pg (27.0-33.0); MEAN CORPUSCULAR HGB CONC 31.5 g/dl (32.0-36.5); MEAN CORPUSCULAR VOLUME 96.7 fl (80.0-96.0); MONO # 1.3 10^3/uL (0.0-0.8); MONO % 15.2 % (2.0-8.0); NEUTROPHILS # 5.6 10^3/uL (1.5-8.5); NEUTROPHILS % 65.9 % (36.0-66.0); PLATELET COUNT, AUTOMATED 280 10^3/uL (150-450); RED BLOOD COUNT 4.82 10^6/uL (4.30-6.10); WHITE BLOOD COUNT 8.4 10^3/uL (4.0-10.0)
[2022-05-03 09:01] LABS: INR 0.9; PROTHROMBIN TIME 12.3 SECONDS (12.5-14.5)
[2022-05-03 09:02] LABS: PARTIAL THROMBOPLASTIN TIME 28.1 SECONDS (24.8-34.2)
[2022-05-03 09:26] LABS: CPK CREATINE PHOSPHOKINASE 125 U/L (39-308)
[2022-05-03 09:55] LABS: CPK CREATINE PHOSPHOKINASE 93 U/L (39-308)
[2022-05-03 10:32] LABS: ALBUMIN 3.2 GM/DL (3.2-5.2); ALT/SGPT 9 U/L (12-78); BILIRUBIN,DIRECT < 0.1 MG/DL (0.0-0.2); BILIRUBIN,TOTAL 0.3 MG/DL (0.2-1.0); BLOOD UREA NITROGEN 17 MG/DL (7-18); CALCIUM LEVEL 8.4 MG/DL (8.8-10.2); CARBON DIOXIDE LEVEL 22 MEQ/L (21-32); CHLORIDE LEVEL 108 MEQ/L (98-107); CREATININE FOR GFR 0.69 MG/DL (0.70-1.30); FREE T4 1.13 NG/DL (0.76-1.46); GLOMERULAR FILTRATION RATE > 60.0 (>49); GLUCOSE, FASTING 91 MG/DL (70-100); LIPASE 71 U/L (73-393); NT-PRO BNP 114 PG/ML (<125); POTASSIUM SERUM 3.7 MEQ/L (3.5-5.1); SODIUM LEVEL 137 MEQ/L (136-145); THYROID STIMULATING HORMONE 0.526 uIU/ML (0.358-3.740); TOTAL PROTEIN 6.8 GM/DL (6.4-8.2)
[2022-05-03] MEDS ORDERED: dexameTHASONE 4 MG/ML 1ML VIAL (J1100 PER 1MG) IV ONE (10:45)
[2022-05-03] MEDS ORDERED: ONDANSETRON 4MG 2ML VIAL IV ONE (10:45)
[2022-05-03] MEDS ORDERED: ISOVUE-370 76% 100ML VIAL As Ordered ONE (10:46)
[2022-05-03] MEDS: COMBIVENT RESPIMAT 100-20MCG INHALER 4GM INH SCH ×2 (10:51→11:13)
[2022-05-03] MEDS ORDERED: CEFD300C41 PO (13:55)
[2022-05-03] MEDS ORDERED: ALBUTEROL SULFATE 2.5 MG/0.5 ML INH NEB SOLN INH PRN (13:55)
[2022-05-03] MEDS ORDERED: CEFDINIR 300 MG CAP (OMNICEF) PO ONE (13:55)
[2022-05-03] MEDS ORDERED: BEBTELOVIMAB 175MG 2ML VIAL (EUA) IV ONE ×2 (13:55→14:15)
[2022-05-03] MEDS ORDERED: ONDA4TAB6 PO (13:55)
[2022-05-03] MEDS ORDERED: ALBUTEROL 90 MCG/ACT 8GM HFA INHALER INH PRN (13:55)
[2022-05-03] MEDS ORDERED: methylPREDNISolone 125MG 2ML VIAL IV PRN (13:55)
[2022-05-03] MEDS ORDERED: ACETAMINOPHEN TAB 650MG DOSE (2X325MG) PO PRN (13:55)
[2022-05-03] MEDS ORDERED: NS 1,000 ML IV SCH (13:55)
[2022-05-03] MEDS ORDERED: EPINEPHrine INJ 1 MG/ML 1ML AMP IM PRN (13:55)
[2022-05-03] MEDS ORDERED: diphenhydrAMINE 50MG/ML VIAL (J1200) IV PRN (13:55)
[2022-05-03] MEDS ORDERED: PRED20TA PO (13:55)
[2022-05-03] MEDS ORDERED: BENZ-18 PO (14:06)
[2022-05-03 14:30] VITALS: BP 137/79
== END 2022-05-03 14:59 | disposition home or self-care (01) ==
LOC: M ED 07:45
DX: U07.1 COVID-19 (principal); I25.2 Old myocardial infarction; E78.5 Hyperlipidemia, unspecified; Z87.891 Personal history of nicotine dependence
CPT/HCPCS: 71045; 71275; 80048; 80076; 82550; 83690; 83880; 84439; 84443; 84484; 85025; 85610; 85730; 87486; 87581; 87633; 87798; 93005; 93041; 94640; 94760; 96361; 96374; 96375; 99285; J1100; J2405; Q0222; Q9967

== ENCOUNTER 2022-05-14 22:57 | Emergency (ER) | payer MEDICARE ==
[~2022-05-14] VITALS: Ht 177.8 cm; Wt 86.4 kg
[~2022-05-14 22:57] MED LIST changes: +BENZ-18 PO; +CEFD300C41 PO; +ONDA4TAB6 PO; +PRED20TA PO
[2022-05-15 00:36] LABS: BASO # 0.1 10^3/uL (0.0-0.2); BASO % 0.5 % (0.0-1.0); EOS # 0.4 10^3/uL (0.0-0.5); EOS % 2.7 % (0.0-3.0); LYMPH # 1.6 10^3/uL (1.5-5.0); LYMPH % 10.7 % (24.0-44.0); MEAN CORPUSCULAR HEMOGLOBIN 31.1 pg (27.0-33.0); MEAN CORPUSCULAR HGB CONC 32.6 g/dl (32.0-36.5); MEAN CORPUSCULAR VOLUME 95.6 fl (80.0-96.0); MONO % 12.1 % (2.0-8.0); NEUTROPHILS # 10.7 10^3/uL (1.5-8.5); NEUTROPHILS % 73.4 % (36.0-66.0); PLATELET COUNT, AUTOMATED 336 10^3/uL (150-450); WHITE BLOOD COUNT 14.6 10^3/uL (4.0-10.0)
[2022-05-15 00:44] LABS: ALBUMIN 3.4 GM/DL (3.2-5.2); ALT/SGPT 9 U/L (12-78); BILIRUBIN,DIRECT < 0.1 MG/DL (0.0-0.2); BILIRUBIN,TOTAL 0.4 MG/DL (0.2-1.0); BLOOD UREA NITROGEN 21 MG/DL (7-18); CALCIUM LEVEL 8.6 MG/DL (8.8-10.2); CARBON DIOXIDE LEVEL 24 MEQ/L (21-32); CHLORIDE LEVEL 109 MEQ/L (98-107); CREATININE FOR GFR 1.03 MG/DL (0.70-1.30); GLOMERULAR FILTRATION RATE > 60.0 (>49); GLUCOSE, FASTING 97 MG/DL (70-100); POTASSIUM SERUM 4.1 MEQ/L (3.5-5.1); SODIUM LEVEL 140 MEQ/L (136-145); TOTAL PROTEIN 6.3 GM/DL (6.4-8.2)
[2022-05-15 00:47] LABS: CK-MB VALUE MASS < 1.0 NG/ML (<3.6); CPK CREATINE PHOSPHOKINASE 45 U/L (39-308); MB/CK RELATIVE INDEX 2.22 (< OR =4)
[2022-05-15 01:06] LABS: MONO # 1.8 10^3/uL (0.0-0.8)
[2022-05-15] MEDS ORDERED: ISOVUE-370 76% 100ML VIAL As Ordered ONE (05:15)
[2022-05-15 09:20] VITALS: BP 134/71
== END 2022-05-15 09:20 | disposition home or self-care (01) ==
LOC: M ED 22:57
DX: U07.1 COVID-19 (principal); I25.2 Old myocardial infarction; E78.5 Hyperlipidemia, unspecified; I51.9 Heart disease, unspecified; Z95.5 Presence of coronary angioplasty implant and graft; Z79.82 Long term (current) use of aspirin; Z79.899 Other long term (current) drug therapy
CPT/HCPCS: 36415; 71046; 71275; 80048; 80076; 82550; 82553; 84484; 85025; 87486; 87581; 87633; 87798; 93005; 93041; 94760; 99284; Q9967

== ENCOUNTER → 2022-11-17 | Outpatient (CLI) | payer MEDICARE ==
[~2022-11-17] MED LIST changes: +PRED15SO24 PO; -PRED5SOL10 PO
== END ==
LOC: M CLY 14:36
PROVIDERS: ATTEND Nurse Practitioner Family
DX: M25.512 Pain in left shoulder (principal)

== ENCOUNTER → 2023-04-14 | Outpatient (CLI) | payer OTHER ==
[~2023-04-14] MED LIST changes: -K-TA10TA2 PO; +POTA-165 PO
== END ==
LOC: M PLAIMG 09:00
PROVIDERS: ATTEND Nurse Practitioner Family
DX: J98.4 Other disorders of lung (principal)

== ENCOUNTER → 2023-11-06 | Outpatient (REF) | payer OTHER ==
[~2023-11-06] MED LIST changes: +CEFD1CAP9 PO; -CEFD300C41 PO; -LEFL1TAB4 PO; +LEFL20TA15 PO
[2023-11-06 13:07] LABS: ALBUMIN 3.7 G/DL (3.2-5.2); ALKALINE PHOSPHATASE 87 U/L (46-116); ALT/SGPT 13 U/L (7.0-40); AST/SGOT 19 U/L (<34); BILIRUBIN,TOTAL 0.3 MG/DL (0.3-1.2); BLOOD UREA NITROGEN 22 MG/DL (9-23); CALCIUM LEVEL 8.7 MG/DL (8.3-10.6); CARBON DIOXIDE LEVEL 27 MMOL/L (20-31); CHLORIDE LEVEL 105 MMOL/L (98-107); CHOLESTEROL LEVEL 141 MG/DL (<200); CHOLESTEROL RISK RATIO 3.32 (<5); CREATININE FOR GFR 0.88 MG/DL (0.70-1.30); GLOMERULAR FILTRATION RATE > 60.0 (>49); GLUCOSE, FASTING 98 MG/DL (74-106); HDL CHOLESTEROL 42.4 MG/DL (>40); LDL CHOLESTEROL 63.6 MG/DL (<100); NON-HDL-C 98.6 MG/DL; POTASSIUM SERUM 4.3 MMOL/L (3.5-5.1); SODIUM LEVEL 139 MMOL/L (136-145); TOTAL PROTEIN 6.6 G/DL (5.7-8.2); TRIGLYCERIDES LEVEL 175 MG/DL (<150)
[2023-11-06 13:27] LABS: HEMOGLOBIN A1c 4.8 % (4.0-6.0)
== END ==
LOC: M SFHCCLAY 08:48
PROVIDERS: ATTEND Nurse Practitioner Family
DX: I11.9 Hypertensive heart disease without heart failure (principal); N52.9 Male erectile dysfunction, unspecified; J98.6 Disorders of diaphragm; I25.2 Old myocardial infarction; E78.00 Pure hypercholesterolemia, unspecified; K76.0 Fatty (change of) liver, not elsewhere classified; I25.10 Atherosclerotic heart disease of native coronary artery without angina pectoris; K21.9 Gastro-esophageal reflux disease without esophagitis; R06.83 Snoring; Z79.899 Other long term (current) drug therapy

== ENCOUNTER → 2023-11-07 | Outpatient (CLI) | payer OTHER | LOC: M SLEEP HO 10:30 | PROVIDERS: ATTEND Nurse Practitioner Family | DX: R06.83 Snoring (principal) ==

== ENCOUNTER 2024-01-30 11:36 | Day surgery (SDC) | payer OTHER ==
[~2024-01-30] VITALS: Ht 180.3 cm; Wt 82.3 kg
[~2024-01-30 11:36] MED LIST changes: +ATOR80TA59 PO; +EZET10TA21 PO; +GABA-282 PO; +IPRA0.00 INH; +NITR0.4S14 SL; +OMEP40CA5 PO; +ONDA-282 PO; -ONDA4TAB6 PO; +ROSU40TA63 PO; +SERT50TA29 PO; +SULF500T41 PO; +TALT80IN7 SQ; +TAMS1CAP17 PO
[2024-01-30] MEDS: NS 1,000 ML IV ONE (11:58)
[2024-01-30] MEDS ORDERED: propofoL 200 MG/20 ML VIAL As Ordered ONE (12:21)
[2024-01-30] MEDS ORDERED: fentaNYL 100 MCG/2 ML INJECTION As Ordered ONE (12:21)
[2024-01-30] MEDS ORDERED: LIDOCAINE 2% 100MG/5ML SDV (FOR ANES.) As Ordered ONE (12:21)
[2024-01-30 13:24] VITALS: TEMP 97.5
[2024-01-30 13:46] VITALS: BP 122/86; O2SAT 94
== END 2024-01-30 13:46 | disposition home or self-care (01) ==
LOC: M OPP 11:36
PROVIDERS: ATTEND Internal Medicine Gastroenterology
DX: Z86.010 Personal history of colon polyps (principal); Z80.0 Family history of malignant neoplasm of digestive organs; D12.2 Benign neoplasm of ascending colon; K64.8 Other hemorrhoids; K57.30 Diverticulosis of large intestine without perforation or abscess without bleeding; K29.70 Gastritis, unspecified, without bleeding; K31.89 Other diseases of stomach and duodenum; R12 Heartburn; Z95.5 Presence of coronary angioplasty implant and graft; Z86.74 Personal history of sudden cardiac arrest; I25.119 Atherosclerotic heart disease of native coronary artery with unspecified angina pectoris; Z79.02 Long term (current) use of antithrombotics/antiplatelets; Z79.51 Long term (current) use of inhaled steroids; Z79.620 Long term (current) use of immunosuppressive biologic; Z79.82 Long term (current) use of aspirin; Z79.891 Long term (current) use of opiate analgesic; Z79.899 Other long term (current) drug therapy
CPT/HCPCS: 43239; 45385; 88305; J3010

== ENCOUNTER → 2024-02-05 | Outpatient (CLI) | payer OTHER | LOC: M SLEEP 20:00 | PROVIDERS: ATTEND Nurse Practitioner Adult Health | DX: G47.33 Obstructive sleep apnea (adult) (pediatric) (principal) ==

== ENCOUNTER 2024-04-10 05:50 | Day surgery (SDC) | payer OTHER ==
[~2024-04-10] VITALS: Ht 177.8 cm; Wt 88.0 kg
[~2024-04-10 05:50] MED LIST changes: -ROSU40TA63 PO; +ROSU40TA81 PO
[2024-04-10] MEDS ORDERED: PHENYLEPHRINE 10% OPHTH SOL 5ML OS PRN (06:00)
[2024-04-10] MEDS ORDERED: LIDOCAINE 1% SDV 5ML VIAL As Ordered ONE (06:29)
[2024-04-10] MEDS ORDERED: CEFUROXIME 1MG/0.1ML INTRACAMERAL INJ As Ordered ONE (06:29)
[2024-04-10] MEDS: OFLOXACIN 0.3 % (OCUFLOX) OPTH SOL 5ML OS ONE (06:48)
[2024-04-10] MEDS: ATROPINE SULFATE 1% OPHTH SOLN 2ML BTL OS SCH (06:49)
[2024-04-10] MEDS: PHENYLEPHRINE 2.5% OPHTH SOL 2ML OS SCH (06:49)
[2024-04-10] MEDS: TROPICAMIDE 1% OPHTH SOLN 15ML OS SCH (06:49)
[2024-04-10] MEDS: LIDOCAINE 3.5 % 1ML OPHTH TOPICAL GEL OU ONE (06:49)
[2024-04-10] MEDS ORDERED: fentaNYL 100 MCG/2 ML INJECTION As Ordered ONE (06:59)
[2024-04-10] MEDS ORDERED: MIDAZOLAM INJ 2MG/2ML VIAL As Ordered ONE (06:59)
[2024-04-10] MEDS ORDERED: BSS IRRIG/VANCO(10MG)/TOBRA(5MG)/EPINEPH(1:1000-0.5CC)500ML BAG-ORONLY As Ordered ONE (07:25)
[2024-04-10 08:37] VITALS: BP 178/99; TEMP 97.6; O2SAT 96
== END 2024-04-10 09:04 | disposition home or self-care (01) ==
LOC: M SDC 05:50
PROVIDERS: ATTEND Ophthalmology
DX: H25.12 Age-related nuclear cataract, left eye (principal); I10 Essential (primary) hypertension; I25.10 Atherosclerotic heart disease of native coronary artery without angina pectoris; E78.00 Pure hypercholesterolemia, unspecified; I25.2 Old myocardial infarction; Z95.5 Presence of coronary angioplasty implant and graft; N40.0 Benign prostatic hyperplasia without lower urinary tract symptoms; G47.30 Sleep apnea, unspecified; Z79.899 Other long term (current) drug therapy; Z79.82 Long term (current) use of aspirin
CPT/HCPCS: 66984; J0697; J2250; J3010; V2632

== ENCOUNTER 2024-04-17 08:47 | Day surgery (SDC) | payer OTHER ==
[~2024-04-17] VITALS: Ht 177.8 cm; Wt 87.2 kg
[2024-04-17] MEDS: OFLOXACIN 0.3 % (OCUFLOX) OPTH SOL 5ML OD ONE (07:25)
[2024-04-17] MEDS: LIDOCAINE 3.5 % 1ML OPHTH TOPICAL GEL OU ONE (07:25)
[~2024-04-17 08:47] MED LIST changes: +PHENYLEPHRINE 10% OPHTH SOL 5ML OD PRN
[2024-04-17] MEDS ORDERED: MIDAZOLAM INJ 2MG/2ML VIAL As Ordered ONE (09:05)
[2024-04-17] MEDS: TROPICAMIDE 1% OPHTH SOLN 15ML OD SCH (09:49)
[2024-04-17] MEDS: PHENYLEPHRINE 2.5% OPHTH SOL 2ML OD SCH (09:49)
[2024-04-17] MEDS: ATROPINE SULFATE 1% OPHTH SOLN 2ML BTL OD SCH (09:49)
[2024-04-17] MEDS: CEFUROXIME 1MG/0.1ML INTRACAMERAL INJ As Ordered ONE (10:11)
[2024-04-17] MEDS: LIDOCAINE 1% SDV 5ML VIAL As Ordered ONE (10:11)
[2024-04-17] MEDS: BSS IRRIG/VANCO(10MG)/TOBRA(5MG)/EPINEPH(1:1000-0.5CC)500ML BAG-ORONLY As Ordered ONE (10:11)
[2024-04-17 10:20] VITALS: BP 141/71; TEMP 96.1; O2SAT 94
== END 2024-04-17 10:34 | disposition home or self-care (01) ==
LOC: M SDC 08:47
PROVIDERS: ATTEND Ophthalmology
DX: H25.11 Age-related nuclear cataract, right eye (principal); I25.10 Atherosclerotic heart disease of native coronary artery without angina pectoris; Z95.5 Presence of coronary angioplasty implant and graft; I25.2 Old myocardial infarction; G47.30 Sleep apnea, unspecified; Z79.899 Other long term (current) drug therapy
CPT/HCPCS: 66984; J0697; J2250; V2632

== ENCOUNTER → 2024-12-03 | Outpatient (REF) | payer OTHER ==
[~2024-12-03] MED LIST changes: -FLOM0.4C39 PO; +GABA-1172 PO; -GABA-282 PO; -PHENYLEPHRINE 10% OPHTH SOL 5ML OD PRN; +TAMS-18 PO
[2024-12-03 17:17] LABS: BLOOD UREA NITROGEN 20 MG/DL (9-23); CREATININE FOR GFR 0.83 MG/DL (0.70-1.30); GLOMERULAR FILTRATION RATE > 90.0 (>49)
== END ==
LOC: M LABDRAWC 16:29
PROVIDERS: ATTEND Pain Medicine Interventional Pain Medicine
DX: M96.1 Postlaminectomy syndrome, not elsewhere classified (principal)

== ENCOUNTER → 2025-02-04 | Outpatient (REF) | payer MEDICARE ==
[2025-02-04 12:16] LABS: BASO # 0.1 10^3/uL (0.0-0.2); BASO % 1.0 % (0.0-1.0); EOS # 0.7 10^3/uL (0.0-0.5); EOS % 8.3 % (0.0-3.0); LYMPH # 1.4 10^3/uL (1.5-5.0); LYMPH % 17.7 % (24.0-44.0); MONO # 0.9 10^3/uL (0.0-0.8); MONO % 11.6 % (2.0-8.0); NEUTROPHILS # 4.9 10^3/uL (1.5-8.5); NEUTROPHILS % 60.9 % (36.0-66.0); PLATELET COUNT, AUTOMATED 298 10^3/uL (150-450)
[2025-02-04 12:22] LABS: ALT/SGPT 10 U/L (7.0-40); AST/SGOT 23 U/L (<34); CALCIUM LEVEL 8.9 MG/DL (8.3-10.6); CARBON DIOXIDE LEVEL 29 MMOL/L (20-31); CHLORIDE LEVEL 106 MMOL/L (98-107); CHOLESTEROL LEVEL 152 MG/DL (<200); CHOLESTEROL RISK RATIO 4.03 (<5); CREATININE FOR GFR 0.90 MG/DL (0.70-1.30); GLOMERULAR FILTRATION RATE > 90.0 (>49); LDL CHOLESTEROL 79.9 MG/DL (<100); NON-HDL-C 114.3 MG/DL; POTASSIUM SERUM 4.7 MMOL/L (3.5-5.1); SODIUM LEVEL 143 MMOL/L (136-145); TRIGLYCERIDES LEVEL 172 MG/DL (<150)
[2025-02-04 12:48] LABS: ESTIMATED AVERAGE GLUCOSE 88.0 MG/DL (60-110)
== END ==
LOC: M SFHCCLAY 07:32
PROVIDERS: ATTEND Nurse Practitioner Family
DX: Z00.00 Encounter for general adult medical examination without abnormal findings (principal); N52.9 Male erectile dysfunction, unspecified; J98.6 Disorders of diaphragm; I25.2 Old myocardial infarction; I11.9 Hypertensive heart disease without heart failure; E78.00 Pure hypercholesterolemia, unspecified; K76.0 Fatty (change of) liver, not elsewhere classified; I25.10 Atherosclerotic heart disease of native coronary artery without angina pectoris; Z79.899 Other long term (current) drug therapy

== ENCOUNTER → 2025-02-07 | Outpatient (CLI) | payer MEDICARE | LOC: M CLY 08:01 | PROVIDERS: ATTEND Nurse Practitioner Family | DX: J98.8 Other specified respiratory disorders (principal) ==

== ENCOUNTER → 2025-03-06 | Outpatient (CLI) | payer MEDICARE | LOC: M LAB 11:49 | PROVIDERS: ATTEND Physician Assistant | DX: R06.09 Other forms of dyspnea (principal); J98.6 Disorders of diaphragm; G89.28 Other chronic postprocedural pain ==

== ENCOUNTER → 2025-03-13 | Outpatient (CLI) | payer MEDICARE ==
[2025-03-13 14:36] LABS: CREATININE FOR GFR 0.75 MG/DL (0.70-1.30); GLOMERULAR FILTRATION RATE > 90.0 (>49)
== END ==
LOC: M LAB 12:32
PROVIDERS: ATTEND Physician Assistant
DX: R06.09 Other forms of dyspnea (principal); J98.6 Disorders of diaphragm

== ENCOUNTER → 2025-03-18 | Outpatient (CLI) | payer MEDICARE ==
[~2025-03-18] MED LIST changes: +ISOVUE-370 76% 100 ML VIAL ONE
== END ==
LOC: M PLAIMG 11:47
PROVIDERS: ATTEND Physician Assistant
DX: R06.09 Other forms of dyspnea (principal); J98.6 Disorders of diaphragm; G89.28 Other chronic postprocedural pain; J94.8 Other specified pleural conditions
CPT/HCPCS: 71260; Q9967